=== PATIENT | female | born 1965 | race American Indian/Alaskan Native ===

== ENCOUNTER 2018-12-17 13:58 | Emergency (ER) | payer OTHER ==
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
[2018-12-17 14:30] VITALS: BP 131/86
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
[2018-12-17] MEDS ORDERED: DELTASONE PO NR (17:00)
== END 2018-12-17 17:55 | disposition home or self-care (01) ==
LOC: ED 13:58
DX: F41.9 Anxiety disorder, unspecified (principal); R07.81 Pleurodynia; G43.909 Migraine, unspecified, not intractable, without status migrainosus; E03.9 Hypothyroidism, unspecified; Z90.710 Acquired absence of both cervix and uterus; Z79.899 Other long term (current) drug therapy; V89.2XXA Person injured in unspecified motor-vehicle accident, traffic, initial encounter; Y93.89 Activity, other specified; Y92.488 Other paved roadways as the place of occurrence of the external cause; Y99.8 Other external cause status
CPT/HCPCS: 71111; 72040; 93005; 93010; 99283

== ENCOUNTER 2019-06-19 12:47 | Outpatient (CLI) | payer OTHER ==
[~2019-06-19 12:47] MED LIST: LIDOCAINE 1%/EPINEPHRINE 1:100,000 VIAL (20 ML) INFILTRATI ONE
--- NOTE | 2019-06-19 15:34 | Ultrasound Report ---
ULTRASOUND-GUIDED NEEDLE ASPIRATION LEFT BREAST INDICATION: LEFT BREAST MASS. COMPARISON: [facility] 04/29/2019 ultrasound. FINDINGS: Ultrasound of the left breast demonstrated a slightly larger predominantly anechoic lesion at 5:00 5 cm from the nipple. It measures 1.0 x 0.4 x 0.8 cm compared to 0.6 x 0.5 x 0.6 cm on the last exam. I t has also become more anechoic with a sharp demarcation between an anechoic component and a more het erogeneous solid component. A timeout was called and the left breast was marked. Using ultrasound guidance, sterile technique and 1% lidocaine local anesthesia, ultrasound guided needle aspiration was performed with an 18-gauge ne edle. The lesion showed complete collapse after aspiration of 2 separate cysts. The residual tissue a ppears to be normal fibroglandular tissue. No suspicious findings. IMPRESSION: 1. Successful aspiration of a benign cystic lesion at 5:00 5 cm from the nipple. 2. Recommend clinical follow-up and routine mammographic screening.. BI-RADS Category 2: Benign Signer Name: René Temple MD Signed: 06/19/2019 3:30 PM Workstation Name: [id number]
== END 2019-06-19 12:48 | disposition home or self-care (01) ==
LOC: SPVWC 12:47
PROVIDERS: ATTEND Surgery
DX: N63.23 Unspecified lump in the left breast, lower outer quadrant (principal)
CPT/HCPCS: 76942